=== PATIENT | female | born 1955 | race Caucasian/White ===

== ENCOUNTER → 2023-09-22 11:29 | Outpatient (REF) | payer MEDICARE, OTHER, SELFPAY | LOC: WDC 11:29 | PROVIDERS: ATTENDING PHYSICIAN Family Medicine | DX: Z12.31 Encounter for screening mammogram for malignant neoplasm of breast (principal) | CPT/HCPCS: 77063; 77067 ==

== ENCOUNTER 2024-02-08 12:19 | Emergency (ER) | payer MEDICARE, OTHER, SELFPAY ==
[2024-02-08 12:19] VITALS: BMI 38.5
[2024-02-08 12:20] VITALS: BP 130/104
[2024-02-08 12:37] LABS: % Basophils 0.5 % (0-2); % Eosinophils 2.1 % (0-6); % Immature Granulocytes 0.2 % (0-0.5); % Lymphocytes 22.1 % (20.5-51.1); % Monocytes 6.4 % (1.7-9.3); % Neutrophils 68.7 % (42.2-75.2); Absolute Eosinophils 0.2 10^3/uL (0-0.7); Absolute Lymphocytes 1.9 10^3/uL (1.2-3.4); Absolute Monocytes 0.5 10^3/uL (0.1-0.6); Absolute Neutrophils 5.8 10^3/uL (1.4-6.5); Hematocrit 32.4 % (37.0-47.0); Hemoglobin 10.9 g/dL (12.0-16.0); Mean Corp Hgb Conc. 33.6 g/dL (33.0-37.0); Mean Corpuscular Hgb 28.8 pg (27.0-31.0); Mean Corpuscular Volume 85.7 fL (81.0-99.0); Mean Platelet Volume 10.7 fL (7.4-10.4); Nucleated Red Blood Cells % 0 %; Platelet Count 197 10^3/uL (130-400); Red Blood Cell Count 3.78 10^6/uL (4.20-5.40); Red Cell Dist. Width 14.3 % (11.5-14.5); White Blood Cell Count 8.5 10^3/uL (4.8-10.8)
[2024-02-08 12:59] LABS: ALT (SGPT) 19 U/L (0-35); AST (SGOT) 25 U/L (14-36); Albumin 4.1 g/dl (3.5-5.0); Alkaline Phosphatase 116 U/L (38-126); Blood Urea Nitrogen 21 mg/dl (7-17); Carbon Dioxide 30 mmol/L (22-30); Chloride 103 mmol/L (98-107); Glucose 139 mg/dl (70-99); Potassium 4.3 mmol/L (3.5-5.1); Sodium 143 mmol/L (135-145); Total Bilirubin 0.6 mg/dl (0.2-1.3); Total Protein 6.4 g/dl (6.3-8.2); eGFR 49.61
[2024-02-08 13:33] VITALS: BP 116/74
--- NOTE | 2024-02-08 14:44 | ED.GENMED ---
History of Present Illness
General
Chief Complaint: Flank Pain
Source: patient
Exam Limitations: none
Time Seen by Provider: 02/08/24 13:33
Nursing documentation reviewed up to this point in time: agreed with
History of Present Illness
History of Present Illness:
68-year-old female past medical history of hypertension hyperlipidemia, diabetes presenting to the emergency department today with concerns of right-sided flank pain starting yesterday seems worse with some movements denies nausea vomiting numbness
weakness changes in urination or bowel movements. Denies known injuries. Did have multiple laminectomies in the past.
Past History
Past History
ED Past Medical History: HTN, Hypercholesterolemia and NIDDM
ED Past Surgical History: Other
Social History
Tobacco: Non-smoker
Review of Systems
Review of Systems
Allergies reviewed?: Yes
All Other Systems: ROS reviewed and negative except as documented in HPI and ROS
Phy Exam
Physical Exam
Physical Exam:
GENERAL: Alert , in no apparent distress
EYE: pupils equal and reactive
NECK: Supple, no significant adenopathy.
ENT: o/p clr, mmm.
CARDIAC: Regular rate and rhythm .
LUNGS: Clear breath sounds bilaterally, no acute respiratory distress, no wheezes/rales/rhonchi
ABDOMEN: Soft, without focal tenderness, no r/g, no cvat
NEUROLOGICAL: Alert and oriented, no focal neuro deficits
SKIN: Warm and dry, skin intact.
MUSCULOSKELETAL: No edema, well perfused.
PSYCH: Normal and appropriate interaction.
Course
Orders/Labs/Results
Orders:
Orders
02/08/24 12:29
Acetaminophen Urgent
Comment: ADD ON
CMP [Comprehensive Metabolic Panel] Urgent
Complete Blood Count/With Diff Urgent
Salicylate Urgent
Date and Time of Last Dose: ADD ON
02/08/24 13:57
CT Abd/pel Without Iv Or Oral Urgent
Comment:
Reason For Exam: right flank pain
02/08/24 16:19
Add On- LAB Urgent
Tests Added?: tylenol/salycylate level
02/08/24 17:45
Acetaminophen [Tylenol] 1,000 mg PO NOW STA
Abnormal Lab Results
02/08/24
12:29
RBC 3.78 L 10^6/uL
(4.20-5.40)
Hgb 10.9 L g/dL
(12.0-16.0)
Hct 32.4 L %
(37.0-47.0)
MPV 10.7 H fL
(7.4-10.4)
BUN 21 H mg/dl
(7-17)
Creatinine 1.2 H mg/dL
(0.6-1.0)
Glucose 139 H mg/dl
(70-99)
Salicylates < 1.0 L mg/dl
(2.0-20.0)
Acetaminophen < 10 L ug/ml
(10-30)
02/08/24 12:29
02/08/24 12:29
Vital Signs
Initial and Last Documented VS:
Initial Vital Signs
Temp Pulse Resp BP Pulse Ox
98.4 F 110 20 130/104 95
02/08/24 12:20 02/08/24 12:20 02/08/24 12:20 02/08/24 12:20 02/08/24 12:20
Last Documented Vital Signs
Temp Pulse Resp BP Pulse Ox
98.4 F 81 16 119/77 97
02/08/24 12:20 02/08/24 16:00 02/08/24 16:00 02/08/24 16:00 02/08/24 16:00
MDM/Problems Addressed
MDM/Problems Addressed:
68-year-old female presenting to the emergency department today with concerns of right-sided flank pain starting yesterday. Pain is worse with certain positioning. Denies associated symptom sounds likely to be mechanical pain though it is somewhat
reproducible to the right flank plan for CT scan for further assessment as well. Showing 3 mm right sided distal ureteral stone possibly explaining symptoms. She was given a strainer and advised for urology follow-up. No signs of complications of
this. Additionally had findings of multiple pill ingestions. This was further explored she denied any thoughts of harming yourself did not take any excessive meta pills did take her normal daily meds. This was discussed initially with general
surgery the recommended discussion with GI. GI felt that this did not represent any emergent pathology but was advised for outpatient follow-up for this. Otherwise patient appears stable for discharge return precautions given. Labs unremarkable
CT scan
*Critical Care Note
Total Time (30-74mins, 75-104mins- exclusive of procedures): Not Applicable
ED Attending Note
-
Portions of this chart may have been created with voice recognition software.� Occasional wrong word or��sound alike� substitutions may have occurred due to the inherent limitations of voice recognition software.
Discharge Plan
Departure
Patient Disposition: Home (Routine Discharge)
Date of Disposition: 02/08/24
Time of Disposition: 17:44
Patient with high blood pressure during this ER visit?: No
Condition: Good
Covid-19: Not Applicable
Discharge Problem:
Foreign body in intestine, Acute right flank pain, Right ureteral calculus
Instructions: Renal Colic (DC), Flank Pain (DC), How to Strain Your Urine
Referrals:
Ankush Tran MD [Family Provider] -
Az Bejarano Jr., MD [Active] - Follow up in 1 week
Activity Restrictions/Additional Instructions:
You came to the emergency department today with concerns of flank pain. Here you are found to have a potential kidney stone in your distal right ureter. Please strain your urine and take Tylenol and stay very hydrated. Please follow-up with
urology for further management. Otherwise you are also found to have chills that are still in your intestine. You take MiraLAX to help these pass and he can follow-up with GI for further monitoring of this. Return to the emergency department for
any worsening, new or concerning symptoms.
Interventions
Interventions:
*Risk Screen - Suicide Last Done: 02/08/24 13:33
*General Assessment Last Done: 02/08/24 13:33
*Neglect/Abuse Screening Last Done: 02/08/24 13:33
ED- Fall Risk Assessment Last Done: 02/08/24 17:56
*ED COVID-19 Vaccine History Last Done: 02/08/24 13:33
*Nursing Disposition Last Done: 02/08/24 17:56
SK-Uamdor-Dfczsuldqt Assessment Last Done: 02/08/24 13:33
ED-Female Genitourinary Assessment Last Done: 02/08/24 13:33
Discharge Date and Time
Discharge Date/Time: 02/08/24 17:57
Print Language: SLOVENIAN
[2024-02-08 16:00] VITALS: BP 119/77
[2024-02-08 17:12] LABS: Acetaminophen < 10 ug/ml (10-30); Salicylate < 1.0 mg/dl (2.0-20.0)
[2024-02-08] MEDS: TYLENOL 1000 MG PO (17:48)
== END 2024-02-08 17:57 | disposition home or self-care (01) ==
LOC: EMR 12:19
PROVIDERS: EMERGENCY PHYSICIAN Emergency Medicine; FAMILY PHYSICIAN Family Medicine
DX: R10.9 Unspecified abdominal pain (principal); N20.2 Calculus of kidney with calculus of ureter; T18.4XXA Foreign body in colon, initial encounter; W44.8XXA Other foreign body entering into or through a natural orifice, initial encounter; I10 Essential (primary) hypertension; E78.00 Pure hypercholesterolemia, unspecified; E11.9 Type 2 diabetes mellitus without complications
CPT/HCPCS: 99284; 74176; 80053; 80143; 80179; 85025

== ENCOUNTER → 2024-02-11 07:22 | Outpatient (REF) | payer MEDICARE, OTHER, SELFPAY ==
[2024-02-11 08:13] LABS: Calcium 10.2 mg/dl (8.4-10.2)
[2024-02-12 09:39] LABS: Intact PTH < 3.4 pg/ml (13.6-85.8)
== END ==
LOC: REG 07:22
PROVIDERS: ATTENDING PHYSICIAN Specialist; FAMILY PHYSICIAN Family Medicine
DX: N20.1 Calculus of ureter (principal); N20.0 Calculus of kidney
CPT/HCPCS: 36415; 83970

== ENCOUNTER → 2024-02-25 09:19 | Outpatient (REF) | payer MEDICARE, OTHER, SELFPAY | LOC: RAD 09:19 | PROVIDERS: ATTENDING PHYSICIAN Specialist; FAMILY PHYSICIAN Family Medicine | DX: N20.0 Calculus of kidney (principal) | CPT/HCPCS: 74018 ==

== ENCOUNTER 2024-07-25 08:17 | Emergency (ER) | payer MEDICARE, OTHER, SELFPAY ==
[2024-07-25 08:18] VITALS: BP 143/86
[2024-07-25 08:41] VITALS: BMI 40.4
--- NOTE | 2024-07-25 08:49 | ED.GENMED ---
History of Present Illness
General
Chief Complaint: Flank Pain
Time Seen by Provider: 07/25/24 08:31
History of Present Illness
History of Present Illness:
69-year-old female presents to the emergency department for evaluation of left flank pain that began this morning, awoke with no symptoms and felt well until shortly after breakfast when she developed sharp colicky left flank pain. Feels comparable
to past kidney stones. Has never needed a procedure to pass a kidney stone in the past. Does not take any anticoagulants. Does have stage III CKD. No fever, chills, sweats. Did vomit x 1 this morning
Past History
Past History
ED Past Medical History: HTN, Hypercholesterolemia and NIDDM
ED Past Surgical History: Other
Social History
Tobacco: Non-smoker
Review of Systems
Review of Systems
Allergies reviewed?: Yes
All Other Systems: ROS reviewed and negative except as documented in HPI and ROS
Phy Exam
Physical Exam
Physical Exam:
GEN: Well appearing, NAD, WDWN
HEENT: Oral mucosa moist, no scleral icterus
Cardiac: Regular rate and rhythm, no murmurs
Lung: No respiratory distress, no tachypnea
Abdomen: Soft, mild left lower quadrant tenderness, no rigidity or peritoneal signs
MSK: No gross deformity or injuries
Skin: Good color, no pallor or jaundice, no rashes
Neuro: AO x3, moves all extremities freely
Psych: Calm, cooperative
Course
Orders/Labs/Results
Orders:
Orders
07/25/24 08:48
0.9% Sodium Chloride 1000 ml [Nss] 1,000 ml IV BOLUS
Ketorolac [Toradol] 15 mg .ROUTE .STK-MED ONE
Ketorolac [Toradol] 15 mg IV NOW STA
Ondansetron Injectable [Zofran] 4 mg .ROUTE .STK-MED ONE
Ondansetron Injectable [Zofran] 4 mg IV NOW STA
07/25/24 08:49
CT Abd/pel Without Iv Or Oral Urgent
Comment:
Reason For Exam: L flank pain
07/25/24 08:55
Complete Blood Count/With Diff Urgent
Comprehensive Metabolic Panel Urgent
Urinalysis Reflex To Culture Urgent
Date Specimen was Collected: 07/25/24
Time Specimen was Collected: 08:55
Urine Microscopic Reflex Cult Urgent
Urine Culture Urgent
MADELYN Source: U
Specimen Description:
Date Specimen was Collected: 07/25/24
Time Specimen was Collected: 08:55
Abnormal Lab Results
07/25/24
08:55
RBC 3.84 L 10^6/uL
(4.20-5.40)
Hgb 11.1 L g/dL
(12.0-16.0)
Hct 34.6 L %
(37.0-47.0)
MCHC 32.1 L g/dL
(33.0-37.0)
MPV 11.4 H fL
(7.4-10.4)
Carbon Dioxide 31 H mmol/L
(22-30)
BUN 26 H mg/dl
(7-17)
Creatinine 1.3 H mg/dL
(0.6-1.0)
Glucose 185 H mg/dl
(70-99)
Total Protein 6.0 L g/dl
(6.3-8.2)
Ur Occult Blood Reflex 4+ A
(Negative)
Leukocyte Esterase Rfl 2+ A
(Negative)
Urine RBC >100 A /HPF
(0-2)
Urine WBC (Reflex) 40-50 A /HPF
(0-5)
Urine Bacteria (Reflex) Few A
(Negative)
Urine Albumin (Reflex) 2+ A
(Neg - Trace)
07/25/24 08:55
0211/25 08:55
Vital Signs
Initial and Last Documented VS:
Initial Vital Signs
Temp Pulse Resp BP Pulse Ox
97.5 F 89 18 143/86 97
07/25/24 08:18 07/25/24 08:18 07/25/24 08:18 07/25/24 08:18 07/25/24 08:18
Last Documented Vital Signs
Temp Pulse Resp BP Pulse Ox
97.5 F 89 18 100/52 96
07/25/24 08:18 07/25/24 08:18 07/25/24 08:18 07/25/24 10:00 07/25/24 10:45
MDM/Problems Addressed
MDM/Problems Addressed:
Imaging reveals a small distal ureteral stone, her pain improved after 1 dose of IV Toradol. Unfortunately due to her CKD we cannot recommend NSAIDs going forward. She has tramadol at home that she will take on a as needed basis. Encourage fluids
and supportive management, discussed ED return parameters
*Critical Care Note
Total Time (30-74mins, 75-104mins- exclusive of procedures): Not Applicable
ED Attending Note
-
Portions of this chart may have been created with voice recognition software.� Occasional wrong word or��sound alike� substitutions may have occurred due to the inherent limitations of voice recognition software.
Discharge Plan
Departure
Patient Disposition: Home (Routine Discharge)
Date of Disposition: 07/25/24
Time of Disposition: 10:47
Patient with high blood pressure during this ER visit?: No
Discharge Problem:
Ureteral calculus
Instructions: Kidney Stones (DC)
Referrals:
Ankush Tran MD [Family Provider] -
Ryan Busby MD [Active] -
Activity Restrictions/Additional Instructions:
Take your tramadol every 8 hours as needed for pain
Drink lots of fluids
Your urinalysis does not show signs of infection; however if the urine culture grows bacteria, we will call you and start antibiotics
If you develop a fever, chills or severe pain, return to the ER
Interventions
Interventions:
*Risk Screen - Suicide Last Done: 07/25/24 08:18
*General Assessment Last Done: 07/25/24 08:18
*Neglect/Abuse Screening Last Done: 07/25/24 08:18
ED- Fall Risk Assessment Last Done: 07/25/24 09:15
*ED COVID-19 Vaccine History Last Done: 07/25/24 08:18
*Nursing Disposition Last Done: 07/25/24 10:57
QN-Giuqnv-Wcbjquyflc Assessment Last Done: 07/25/24 08:47
ED-Female Genitourinary Assessment Last Done: 07/25/24 08:47
Discharge Date and Time
Discharge Date/Time: 07/25/24 11:08
Print Language: TONGAN
[2024-07-25] MEDS: TORADOL 15 MG IV (08:53)
[2024-07-25] MEDS: ZOFRAN 4 MG IV (08:53)
[2024-07-25] MEDS: NSS 1000 IV (08:53)
[2024-07-25 09:00] VITALS: BP 122/60
[2024-07-25 09:16] LABS: % Basophils 0.6 % (0-2); % Eosinophils 2.1 % (0-6); % Immature Granulocytes 0.5 % (0-0.5); % Lymphocytes 24.8 % (20.5-51.1); % Monocytes 6.4 % (1.7-9.3); % Neutrophils 65.6 % (42.2-75.2); Absolute Basophils 0.1 10^3/uL (0-0.2); Absolute Eosinophils 0.2 10^3/uL (0-0.7); Absolute Monocytes 0.5 10^3/uL (0.1-0.6); Absolute Neutrophils 5.3 10^3/uL (1.4-6.5); Hematocrit 34.6 % (37.0-47.0); Hemoglobin 11.1 g/dL (12.0-16.0); Mean Corp Hgb Conc. 32.1 g/dL (33.0-37.0); Mean Corpuscular Hgb 28.9 pg (27.0-31.0); Mean Corpuscular Volume 90.1 fL (81.0-99.0); Mean Platelet Volume 11.4 fL (7.4-10.4); Nucleated Red Blood Cells % 0 %; Platelet Count 199 10^3/uL (130-400); Red Blood Cell Count 3.84 10^6/uL (4.20-5.40); Red Cell Dist. Width 14.5 % (11.5-14.5); White Blood Cell Count 8.1 10^3/uL (4.8-10.8)
[2024-07-25 09:39] LABS: ALT (SGPT) 17 U/L (0-35); AST (SGOT) 21 U/L (14-36); Albumin 3.7 g/dl (3.5-5.0); Alkaline Phosphatase 125 U/L (38-126); Blood Urea Nitrogen 26 mg/dl (7-17); Calcium 9.2 mg/dl (8.4-10.2); Carbon Dioxide 31 mmol/L (22-30); Chloride 101 mmol/L (98-107); Estimated Creatinine Clearance 49 ml/min; Glucose 185 mg/dl (70-99); Sodium 139 mmol/L (135-145); Total Bilirubin 0.5 mg/dl (0.2-1.3); eGFR 44.79
[2024-07-25 10:00] VITALS: BP 100/52
[2024-07-25 10:03] LABS: Urine Albumin 2+ (Neg - Trace); Urine Bilirubin Negative (Negative); Urine Character Cloudy (Clear); Urine Color Yellow; Urine Glucose Negative (Negative); Urine Ketone Negative (Negative); Urine Leukocyte 2+ (Negative); Urine Nitrite Negative (Negative); Urine Occult Blood 4+ (Negative); Urine Urobilinogen Negative (Neg - 1+)
[2024-07-25 10:31] LABS: Urine Squamous Cell >30 /LPF (Few)
[2024-07-25 10:33] LABS: Urine Amorphous Seen; Urine Urothelial Cell 16-20 /LPF (FEW)
[2024-07-25 10:34] LABS: Urine Red Blood Cell >100 /HPF (0-2); Urine White Cell 40-50 /HPF (0-5)
[2024-07-25 10:35] LABS: Urine Bacteria Few (Negative)
== END 2024-07-25 11:08 | disposition home or self-care (01) ==
LOC: EMR 08:17
PROVIDERS: Physician Assistant; EMERGENCY PHYSICIAN Emergency Medicine; FAMILY PHYSICIAN Family Medicine
DX: N13.2 Hydronephrosis with renal and ureteral calculous obstruction (principal)
CPT/HCPCS: 99284; 96374; 96375; 96361; 74176; 80053; 81003; 81015; 85025; 87086

== ENCOUNTER → 2024-09-26 07:46 | Outpatient (REF) | payer MEDICARE, OTHER, SELFPAY | LOC: WDC 07:46 | PROVIDERS: ATTENDING PHYSICIAN Family Medicine | DX: Z12.31 Encounter for screening mammogram for malignant neoplasm of breast (principal) | CPT/HCPCS: 77063; 77067 ==

== ENCOUNTER → 2024-09-29 06:33 | Outpatient (REF) | payer MEDICARE, OTHER, SELFPAY | LOC: MRI 3T 06:33 | PROVIDERS: ATTENDING PHYSICIAN Orthopaedic Surgery; FAMILY PHYSICIAN Family Medicine | DX: M54.16 Radiculopathy, lumbar region (principal) | CPT/HCPCS: 72148 ==

== ENCOUNTER 2024-11-04 13:52 | Emergency (ER) | payer MEDICARE, OTHER, SELFPAY ==
[2024-11-04] VITALS (7 sets, daily range): BP systolic 111–150; BP diastolic 56–79; BMI 41.4
[2024-11-04 14:22] LABS: % Basophils 0.4 % (0-2); % Immature Granulocytes 0.3 % (0-0.5); % Lymphocytes 22.9 % (20.5-51.1); % Monocytes 5.7 % (1.7-9.3); % Neutrophils 68.7 % (42.2-75.2); Absolute Eosinophils 0.2 10^3/uL (0-0.7); Absolute Lymphocytes 1.8 10^3/uL (1.2-3.4); Absolute Monocytes 0.5 10^3/uL (0.1-0.6); Absolute Neutrophils 5.4 10^3/uL (1.4-6.5); Hematocrit 33.2 % (37.0-47.0); Hemoglobin 10.8 g/dL (12.0-16.0); Mean Corp Hgb Conc. 32.5 g/dL (33.0-37.0); Mean Corpuscular Hgb 29.2 pg (27.0-31.0); Mean Corpuscular Volume 89.7 fL (81.0-99.0); Mean Platelet Volume 10.8 fL (7.4-10.4); Nucleated Red Blood Cells % 0 %; Platelet Count 187 10^3/uL (130-400); Red Cell Dist. Width 15.4 % (11.5-14.5); White Blood Cell Count 7.9 10^3/uL (4.8-10.8)
[2024-11-04 14:34] LABS: ALT (SGPT) 15 U/L (0-35); AST (SGOT) 20 U/L (14-36); Albumin 4.2 g/dl (3.5-5.0); Alkaline Phosphatase 105 U/L (38-126); Blood Urea Nitrogen 28 mg/dl (7-17); Calcium 9.6 mg/dl (8.4-10.2); Carbon Dioxide 26 mmol/L (22-30); Chloride 105 mmol/L (98-107); Glucose 158 mg/dl (70-99); Potassium 4.8 mmol/L (3.5-5.1); Sodium 141 mmol/L (135-145); Total Bilirubin 0.4 mg/dl (0.2-1.3); Total Protein 6.5 g/dl (6.3-8.2); eGFR 40.98
[2024-11-04 14:45] LABS: Troponin I < 0.012 ng/ml
[2024-11-04] MEDS: NITROSTAT (SUBLINGUAL) 0.4 MG SL (17:18)
[2024-11-04] MEDS: LOW STRENGTH ASPIRIN 324 MG PO (17:20)
[2024-11-04 17:48] LABS: Troponin I < 0.012 ng/ml
[2024-11-04] MEDS: MAALOX 50 PO (18:51)
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
== END 2024-11-04 19:12 | disposition home or self-care (01) ==
LOC: EMR 13:52
PROVIDERS: Emergency Medicine; EMERGENCY PHYSICIAN Emergency Medicine; FAMILY PHYSICIAN Family Medicine
DX: R07.89 Other chest pain (principal); R10.13 Epigastric pain; K21.9 Gastro-esophageal reflux disease without esophagitis; I10 Essential (primary) hypertension; E78.00 Pure hypercholesterolemia, unspecified; E11.9 Type 2 diabetes mellitus without complications; Z79.84 Long term (current) use of oral hypoglycemic drugs; Z79.82 Long term (current) use of aspirin; Z91.040 Latex allergy status; Z88.5 Allergy status to narcotic agent
CPT/HCPCS: 99284; 71046; 80053; 84484; 85025; 93005

== ENCOUNTER → 2024-12-28 06:17 | Outpatient (REF) | payer MEDICARE, OTHER, SELFPAY ==
[2024-12-28 07:44] LABS: HDL Cholesterol 51 mg/dl; LDL Cholesterol, Calculated 65 mg/dl; Very Low Density Lipoprotein 25 mg/dl (0-30)
[2024-12-28 08:16] LABS: TSH 0.14 uIU/ml (0.47-4.68)
[2024-12-28] MEDS: LEXISCAN 0.4 MG IV (08:30)
[2024-12-28] MEDS: AMINOPHYLLINE 75 MG IV (08:42)
== END ==
LOC: RCS 06:17
PROVIDERS: ATTENDING PHYSICIAN Internal Medicine; FAMILY PHYSICIAN Family Medicine
DX: I25.118 Atherosclerotic heart disease of native coronary artery with other forms of angina pectoris (principal); I10 Essential (primary) hypertension; E78.00 Pure hypercholesterolemia, unspecified; I20.1 Angina pectoris with documented spasm
CPT/HCPCS: 36415; 78452; 80061; 84443; 93017; A9500; J2785